=== PATIENT | female | born 1965 ===

== ENCOUNTER → 2017-12-14 09:59 | Outpatient (CLI) | payer OTHER | END | disposition home or self-care (01) | LOC: LAB 09:59 | DX: N91.1 Secondary amenorrhea (principal) ==

== ENCOUNTER 2019-01-20 15:27 | Outpatient (CLI) | payer OTHER ==
[~2019-01-20] VITALS: Ht 160 cm; Wt 60.8 kg
== END 2019-01-20 15:40 | disposition home or self-care (01) ==
LOC: OFIC 805 15:27
DX: J33.8 Other polyp of sinus (principal); R09.81 Nasal congestion; J34.89 Other specified disorders of nose and nasal sinuses